=== PATIENT | female | born 1955 | race Caucasian/White ===

== ENCOUNTER → 2019-01-12 | Outpatient (CLI) | payer OTHER ==
[~2019-01-12] VITALS: Ht 175.3 cm; Wt 85.3 kg
[~2019-01-12] MED LIST: ALEVE220 MG PO; CATAPRES0.2 MG PO; FLEXERIL PO; HYDROCODON-ACE1 EAC5 PO; PROTONIX 20 MG20 M1 PO; PROZAC40 MG PO; WELLBUTRIN XL300 MG PO; XANAX1 MG PO
--- NOTE | ~2019-01-12 | HPC ---
[facility] [address] [place] [address] PAIN MANAGEMENT CONSULTATION Name: JORGECHERYNeftaliCLINTON CHULA Room #: REG KIMBERLY Noble#: [id number] Admission: 01/12/19 ������������������ Attend Phys: Chris Marquez MD Discharge: ������������������ Date of : 59 Report #: [id number] THIS REPORT FOR: //name// CC: Chris Barrios DATE OF SERVICE: 01/12/2019 The patient returns to Pain Clinic today complaining of bilateral pain radiating in the L5 distribution. She has a history of chronic low back pain and has had a previous surgery for resection of a synovial cyst at L4-L5 on the left. I saw her in 2014, she received a single transforaminal epidural injection with good results. Pain has now been returned and increasing in severity over the course of the last several months. She now describes her pain as 6/10. It is worse later in the day after she has been up on her feet and is also severe when she lays flat. She has another problem at this time, which is being evaluated at the [facility]. She has neurogenic cardiac syndrome. She has been passing out and this does not appear to be strictly orthostatic in nature. She reports that she will be going to the [facility] within the next month for further evaluation. MEDICATIONS: Pantoprazole, alprazolam, bupropion, clonidine, cyclobenzaprine, fluoxetine. ALLERGIES: TRIMETHOPRIM, LATEX. SOCIAL HISTORY: She is . Her is a patient of ours. She denies use of tobacco or alcohol. She is a retired nurse. She used to work in ____, stopped working a couple of years ago. REVIEW OF SYSTEMS: Positive for spells of sudden loss of consciousness without respiratory issue. She is no longer driving. She denies chest pain, denies shortness of breath. Occasional mild constipation. She has a history of nervousness and depression. Headaches and also occasional complaint. PHYSICAL EXAMINATION: GENERAL: Pleasant female. VITAL SIGNS: Blood pressure 136/86, heart rate 78, respirations 14, O2 sat 97 on room air. BMI is 27.8. NEUROLOGICAL: She is able to independently move from sitting to standing position, does not appear to be lightheaded. Her gait is stable. She has pain across her low back. She has bilateral positive straight leg raising that follows an L5-S1 distribution. Sensation is intact. There is no focal [facility] [address] [place] [address] PAIN MANAGEMENT CONSULTATION Name: CLINTON AGUILERA Room #: REG CLI [facility].#: [id number] Admission: 01/12/19 ������������������ Attend Phys: Chris Marquez MD Discharge: ������������������ Date of : 59 Report #: [id number] weakness. Deep tendon reflexes are diminished bilaterally at the knees and ankles. CHEST: Clear. CARDIAC: Rhythm is regular. ABDOMEN: Soft. SKIN: Small scar in midline of the low back from previous surgery overlying L4-L5 and L5-S1. Plain film x-ray of the lumbar spine shows grade 1 anterolisthesis of L4 on L5. There is some sclerosis of the upper lumbar spine as well as L4-L5 and L5-S1. There is a slight right lumbar curve without fracture identified. IMPRESSION: Bilateral lumbar radiculopathy. This follows an L5 distribution with complaints radiating down the lateral aspect of the leg past the knee into the calf and the top of the foot. RECOMMENDATIONS: Bilateral transforaminal epidural injections, L5-S1 under fluoroscopic guidance. PROCEDURE: She was taken to the fluoroscopic suite for treatment. She was placed prone, skin prepped with ChloraPrep. Skin anesthetized over the L5-S1 neural foramen, first on the left. Using triplanar fluoroscopic views, I advanced the needle into the neural foramen. A 1 mL of Omnipaque was injected and excellent spread of dye observed into the epidural space. It was then followed by 3 mL of 0.5% lidocaine mixed with 40 mg triamcinolone. She tolerated the procedure well. There were no paresthesias or discomfort during the injection. C-arm was moved to the right. Again, excellent position of the needle was achieved using triplanar fluoroscopic views. A 0.25 mL of Omnipaque again demonstrated an epidurogram along the right. It was followed then by 3 mL of 0.5% lidocaine mixed with 40 mg of triamcinolone on the right through the L5-S1 neural foramen. She tolerated the procedure well. There were no complications. She was seen in recovery room for about 30 minutes and discharged. She was able to ambulate without difficulty. Followup visit planned in about 6 weeks. ��������������������������������������������� ���������������������������������������� By: ��������������������������������������������� 1355 0028 Chris Marquez MD /nt
[2019-01-12 09:29] VITALS: BP 130/86
--- NOTE | 2019-01-12 09:58 | NUR ---
Pain Clinic Assessment: 1. History of Osteoarthritis: SPINE History of Rheumatoid Arthritis: NO 2. Height: 5 ft. 9 in. 175.3 cm. Weight: 188.0 lb. oz. 85.276 kg. Patient's BMI: 27.8 3. Vital Signs: BP: 130/86 Pulse: 78 Resp: 14 Temp: 02 Sat: 97 ECG Mon: 4. Pain Intensity: 6 5. Fall Risk: Dizziness: Y Needs help standing or walking: N Fallen in the last 3 months: N Fall risk comments: 6. Patient on Blood Thinner: None 7. History of Hypertension: N 8. Opioid Therapy greater than 6 weeks: N Opiate Contract Signed: 9. Risk Assessment Tool Provided: 10. Functional Assessment Tool: 11. Recreational Drug Use: Never Drug Type: Tobacco Use: Never Smoker Tobacco Type: Amount or Packs/day: How Many Years: Alcohol Use: Yes Frequency: Weekly Quant: 1-2 WINE A WEEK
== END | disposition home or self-care (01) ==
LOC: PAIN 06:41
DX: M54.16 Radiculopathy, lumbar region (principal); G89.29 Other chronic pain; Z91.040 Latex allergy status; Z88.8 Allergy status to other drugs, medicaments and biological substances; Z79.899 Other long term (current) drug therapy; Z88.2 Allergy status to sulfonamides

== ENCOUNTER → 2019-01-30 | Outpatient (CLI) | payer OTHER ==
[~2019-01-30] VITALS: Ht 175.3 cm; Wt 89.4 kg
--- NOTE | ~2019-01-30 | HPC ---
[facility] [address] [place] [address] PAIN MANAGEMENT CONSULTATION Name: CLINTON AGUILERA CHULA Room #: REG RIZWANAJoanna Noble#: [id number] Admission: 01/30/19 Attend Phys: Chris Marquez MD Discharge: Date of : 59 Report #: [id number] THIS REPORT FOR: //name// CC: Darrin Barrios DATE OF SERVICE: 01/30/2019 Followup visit for lumbar radiculopathy. The patient returns today reporting temporary improvement following a transforaminal epidural injection. She has had a previous surgery. We talked about repeating the injections today, but I have elected to proceed with a midline injection at L5-S1. She has neurogenic cardiac syndrome and has been passing out and planning on going to [facility] in the next week or two. She is hopeful that the pain relief from the injection will help her in her ride to the [facility] with her . PHYSICAL EXAMINATION: VITAL SIGNS: Blood pressure is 133/92, heart rate 95, respirations 16. She is able to move independently and ambulate without too much difficulty. She has tenderness across the scar from her back. Straight leg raising is positive bilaterally. It follows the L5-S1 distribution. IMPRESSION: Bilateral lumbar radiculopathy in an L5 distribution. PROCEDURE: The patient was taken to fluoroscopic suite, placed prone, skin prepped with ChloraPrep. Skin was anesthetized over the L5-S1 interspace. A 20-gauge Tuohy epidural needle advanced first attempt in the epidural space with loss of resistance technique. There was no blood or CSF aspirated. A 1 mL of Omnipaque was injected. Good spread of dye observed in the epidural space followed by 3 mL of 0.5% lidocaine with 80 mg of triamcinolone. She tolerated the procedure well and was observed for 45 minutes and discharged. Follow up as needed. By: 1815 0034 Chris Marquez MD /nt
[2019-01-30 10:32] VITALS: BP 133/92
--- NOTE | 2019-01-30 10:34 | NUR ---
Pain Clinic Assessment: 1. History of Osteoarthritis: SPINE History of Rheumatoid Arthritis: NO 2. Height: 5 ft. 9 in. 175.3 cm. Weight: 197.0 lb. oz. 89.359 kg. Patient's BMI: 29.1 3. Vital Signs: BP: 133/92 Pulse: 95 Resp: 16 Temp: 02 Sat: 95 ECG Mon: 4. Pain Intensity: 6 5. Fall Risk: Dizziness: Y Needs help standing or walking: N Fallen in the last 3 months: N Fall risk comments: OCCASIONAL DIZZINIESS-RESOLVES ON OWN 6. Patient on Blood Thinner: None 7. History of Hypertension: N 8. Opioid Therapy greater than 6 weeks: N Opiate Contract Signed: 9. Risk Assessment Tool Provided: 10. Functional Assessment Tool: 11. Recreational Drug Use: Never Drug Type: Tobacco Use: Never Smoker Tobacco Type: Amount or Packs/day: How Many Years: Alcohol Use: Yes Frequency: Quant:
== END | disposition home or self-care (01) ==
LOC: PAIN 06:56
DX: M54.16 Radiculopathy, lumbar region (principal); G89.29 Other chronic pain; Z91.040 Latex allergy status; Z88.2 Allergy status to sulfonamides; Z79.899 Other long term (current) drug therapy; Z98.890 Other specified postprocedural states

== ENCOUNTER → 2019-02-20 | Outpatient (CLI) | payer OTHER ==
[~2019-02-20] VITALS: Ht 175.3 cm; Wt 87.2 kg
[~2019-02-20] MED LIST changes: +HYDROCODON-ACE1 EAC7 PO
--- NOTE | ~2019-02-20 | HPC ---
[facility] [place] [address] [place] [address] PAIN MANAGEMENT CONSULTATION Name: CLINTON AGUILERA [place]ETH[place] Room #: REG KIMBERLY Cui.#: [id number] Admission: 02/20/19 ������������������ Attend Phys: Chris Marquez MD Discharge: ������������������ Date of : 59 Report #: [id number] THIS REPORT FOR: //name// CC: Darrin Barrios DATE OF SERVICE: 02/20/2019 Followup visit for chronic low back pain with radiculopathy. The patient returns to pain clinic today in followup. She is here today to discuss injection treatments. She has had previous epidural injections with some good relief, but the pain is returning. We are going to repeat the injection today hoping for additional benefit. This will be her third epidural injection in a period of 6 weeks. This will complete a full series of injections. She describes pain today as a 6/10, worse with lying flat. Pain is bilateral, but worse on the left than the right. Pain moves from one side to the other. PHYSICAL EXAMINATION: VITAL SIGNS: She is hypertensive today. Blood pressure 170/110 initially in the recovery room and stayed elevated. She did not take her antihypertensive as it was changed at the [facility] and we have placed a call to Dr. Darrin Masterson. MUSCULOSKELETAL: She moves from sitting to standing position, walks with mildly antalgic gait. There is no weakness. Straight leg raising is bilaterally positive, worse on the left, that follows an L5-S1 distribution. Sensation is intact. IMPRESSION: Chronic and persistent low back pain with bilateral radiculopathy, left worse than right. PROCEDURE: Repeat epidural injection under fluoroscopic guidance. DESCRIPTION OF PROCEDURE: She was taken to fluoroscopic suite, placed prone, skin prepped with ChloraPrep. Skin anesthetized over the right L4-L5 interspace. A 20-gauge Tuohy epidural needle was advanced in the epidural space with loss of resistance. There was no blood or CSF aspirated. A 1 mL of Omnipaque injected. Good spread of dye observed into the epidural space followed by 3 mL of 0.5% lidocaine mixed with 10 mg of dexamethasone. She tolerated the procedure well and was observed for 45 minutes and discharged. [facility] [address] [place] [address] PAIN MANAGEMENT CONSULTATION Name: CLINTON AGUILERA BETHLEHEM Room #: REG [facility].#: [id number] Admission: 02/20/19 ������������������ Attend Phys: Chris Marquez MD Discharge: ������������������ Date of : 59 Report #: [id number] Followup visit planned in the pain clinic in 1-2 months. May consider an MRI if there is no persistent improvement. ��������������������������������������������� ���������������������������������������� By: ��������������������������������������������� 1743 0231 Chris Marquez MD /nt
[2019-02-20 09:20] VITALS: BP 143/100
--- NOTE | 2019-02-20 09:22 | NUR ---
Pain Clinic Assessment: 1. History of Osteoarthritis: SPINE History of Rheumatoid Arthritis: NO 2. Height: 5 ft. 9 in. 175.3 cm. Weight: 192.2 lb. oz. 87.181 kg. Patient's BMI: 28.4 3. Vital Signs: BP: 143/100 Pulse: 114 Resp: 16 Temp: 02 Sat: 95 ECG Mon: 4. Pain Intensity: 6 5. Fall Risk: Dizziness: N Needs help standing or walking: N Fallen in the last 3 months: N Fall risk comments: OCCASIONAL DIZZINIESS-RESOLVES ON OWN 6. Patient on Blood Thinner: None 7. History of Hypertension: N 8. Opioid Therapy greater than 6 weeks: N Opiate Contract Signed: 9. Risk Assessment Tool Provided: 10. Functional Assessment Tool: 11. Recreational Drug Use: Never Drug Type: Tobacco Use: Never Smoker Tobacco Type: Amount or Packs/day: How Many Years: Alcohol Use: Yes Frequency: Weekly Quant: 1-2
== END | disposition home or self-care (01) ==
LOC: PAIN 06:41
DX: M54.16 Radiculopathy, lumbar region (principal); G89.29 Other chronic pain; Z98.890 Other specified postprocedural states; Z91.040 Latex allergy status; Z88.2 Allergy status to sulfonamides; Z88.8 Allergy status to other drugs, medicaments and biological substances; Z79.899 Other long term (current) drug therapy

== ENCOUNTER → 2019-04-13 | Outpatient (CLI) | payer OTHER ==
[~2019-04-13] VITALS: Ht 175.3 cm; Wt 90.0 kg
[2019-04-13 10:07] VITALS: BP 109/67
--- NOTE | 2019-04-13 10:25 | NUR ---
Pain Clinic Assessment: 1. History of Osteoarthritis: SPINE History of Rheumatoid Arthritis: NO 2. Height: 5 ft. 9 in. 175.3 cm. Weight: 198.4 lb. oz. 89.994 kg. Patient's BMI: 29.3 3. Vital Signs: BP: 109/67 Pulse: 76 Resp: 14 Temp: 02 Sat: 98 ECG Mon: 4. Pain Intensity: 4 5. Fall Risk: Dizziness: N Needs help standing or walking: N Fallen in the last 3 months: N Fall risk comments: OCCASIONAL DIZZINIESS-RESOLVES ON OWN 6. Patient on Blood Thinner: None 7. History of Hypertension: N 8. Opioid Therapy greater than 6 weeks: N Opiate Contract Signed: 04/13/19 9. Risk Assessment Tool Provided: 1 LOW 10. Functional Assessment Tool: 11. Recreational Drug Use: Never Drug Type: Tobacco Use: Never Smoker Tobacco Type: Amount or Packs/day: How Many Years: Alcohol Use: Yes Frequency: Special Occasions Quant:
--- NOTE | 2019-04-14 10:47 | HPC ---
[facility] [address] [address] PAIN MANAGEMENT CONSULTATION Name: CLINTON AGUILERA [place] Room #: REG KIMBERLY Aide#: [id number] Admission: 04/13/19 Attend Phys: Toya Childress Discharge: Date of : 59 Report #: [id number] THIS REPORT FOR: //name// CC: Toya Marquez MD DATE OF SERVICE: 04/13/2019 CHIEF COMPLAINT: Chronic low back pain with radiculopathy. HISTORY OF PRESENT ILLNESS: This is a very pleasant 63-year-old female, who returns to the pain clinic today for refill of medications that she has recently started taking by Dr. Chris Marquez in February. She has had a series of 3 epidural injections that are beneficial for a short period of time, then her low back pain and bilateral leg pain returns. She reports that the pain is worse during the middle of the night. It will wake her. She will have burning in her calf and a throbbing, aching pain, especially in her left leg. Heat, rest and occasional hydrocodone are beneficial. She does report a pain score of 4/10 today. She denies any problems with constipation since she does take this on a sparingly basis, not daily and denies any overmedicated feelings. She would like refill of this medication today. She reports that she was only given a 7-day supply from [facility] at her last prescription in February. ALLERGIES: SULFA, BACTRIM, AND LATEX. MEDICATIONS: Hydrocodone 5/325 p.r.n., Protonix 20 mg daily, Xanax 1 mg b.i.d. and Wellbutrin 300 mg daily. PQRS: 1. She does have osteoarthritis in her spine. Denies any rheumatoid arthritis. 2. Height is 5 feet 9 inches, weight is 198, and BMI is 29. 3. Vital signs 109/67, pulse is 76, respirations 14, oxygen sat is 98. 4. Pain score is 4/10. 5. Denies dizziness, does not need help walking or standing, has not fallen in the last 3 months. 6. The patient is not on any blood thinners or hypertension medicines. 7. Opiate therapy has been greater than 6 weeks. We will have her signed her opioid contract today. 8. Risk assessment tool is low. Functional assessment is 40/70. 9. Recreational drug use, she denies. She is not a smoker and occasionally drinks alcohol. According to the prescription monitoring system, the patient did fill her medications. After her last visit, she was given a 7-day supply of this [address] [address] PAIN MANAGEMENT CONSULTATION Name: CLINTON AGUILERA [place] Room #: REG CLJoanna Noble#: [id number] Admission: 04/13/19 Attend Phys: Toya Childress Discharge: Date of : 59 Report #: [id number] medication from [facility]. We did verify that they only gave her 21 pills, avoided the rest of the prescription. We will have checked a random drug screen on her in the future. PHYSICAL EXAMINATION: GENERAL: This is alert and orientated 63-year-old female who appears to her stated age, placing her current pain score at 4/10 today. HEENT: Normocephalic, atraumatic. Extraocular eye muscles are intact. Mucous membranes are moist. MUSCULOSKELETAL: She moves independently from sitting to standing position. Her gait is stable. She has pain across the lumbar spine that radiates into her bilateral legs following the L5-S1 distribution, worse on the left than the right. Sensation is intact. Straight leg raising bilaterally is positive again greater on the left than the right. IMPRESSION: 1. Chronic low back pain with bilateral radiculopathy. 2. Complex medical management under terms of written opioid agreement. 3. We reviewed the fact that opiate medications are being used to provide analgesia adequate to support activities of daily living, not attempting to achieve a specific pain score on the 0-10 Visual Analog Scale. The current opiate medications are providing sufficient analgesia to allow the patient to participate in activities of daily living. The patient is not exhibiting any aberrant behavior suggestive of drug diversion. The patient is not having any adverse reactions to medications. The patient is not suffering from daytime somnolence or mental acuity changes. The patient is managing opiate-induced constipation with appropriate [id number] agents and dietary considerations. The patient was counseled on concern for caution with operating a motor vehicle while using opiate medications. A physical exam was performed and the patient's functional status was evaluated. All patients with back pain were advised against the bed rest greater than 4 days and were advised to return to normal activities. Pain score assessment was noted and the treatment plan was reviewed with the patient. All current medications, both prescribed and OTC were reviewed and reconciled on the electronic medical record. Tobacco screening was accomplished and smoking cessation was advised when indicated. BMI was noted and diet/exercise modification was recommended for all patients following outside normal parameters. I reviewed with the patient today their responsibilities to safeguard prescription medications, reviewed their responsibility to utilize medications only as prescribed by the physician. They are to seek and receive pain medications only from 1 physician group ([facility]). They are to use 1 pharmacy and keep the clinic informed if they change pharmacies. Their responsibilities include making followup visits in a timely fashion and to avoid [facility] [address] [place] [address] PAIN MANAGEMENT CONSULTATION Name: CLINTON AGUILERA [place] Room #: REG KIMBERLY Cui.#: [id number] Admission: 04/13/19 Attend Phys: Toya Childress Discharge: Date of : 59 Report #: [id number] abrupt discontinuation of medication usage. Their responsibilities further include bringing their medications (bottles from the pharmacy with residual pills) to the visit for possible confirmation of pill counts and the patient understands it is their responsibility to submit to random drug screens to ensure both that the medications prescribed are present, and that no other controlled substances are present. All prescriptions provided today were generated electronically. PLAN: 1. We discussed treatment options with the patient today. I explained the prescription monitoring system and the need for opioid agreement, if we continue to write her medications. The patient verbalizes understanding. She was not aware that her prescriptions would not be filled. When they only gave her partial fill at [facility], they had given her a 7-day supply. 2. The patient given today 5/325 of hydrocodone #30, for today and 4 weeks. The patient does take this on a sparingly basis at bedtime when her pain is elevated. This places her at 5 morphine mEq a day by taking it once a day. 3. We did discuss possible gabapentin in the future if her leg continues to have a burning, numbness feeling that is not relieved with 1 occasional hydrocodone. I explained to the patient that this is something we could try in the future if again epidurals are not as beneficial. 4. I did talk to the patient about taking her Xanax and hydrocodone at the same time since there is a benzodiazepine and opioid interactions to be especially careful when taking these medicines. 5. The patient will follow up in 2 months or slightly longer if she is able to take these very sparingly. The patient is seen in collaboration with Dr. Chris Marquez today. <ELECTRONICALLY SIGNED> By: Toya Childress 04/14/19 [id number] Toya Childress /nt
== END ==
LOC: PAIN 07:03
DX: Z76.0 Encounter for issue of repeat prescription (principal); M54.16 Radiculopathy, lumbar region; G89.29 Other chronic pain; Z79.899 Other long term (current) drug therapy; Z79.891 Long term (current) use of opiate analgesic; Z88.2 Allergy status to sulfonamides; Z88.1 Allergy status to other antibiotic agents; Z91.040 Latex allergy status

== ENCOUNTER → 2019-07-17 | Outpatient (CLI) | payer OTHER ==
[~2019-07-17] VITALS: Ht 177.8 cm; Wt 89.5 kg
--- NOTE | ~2019-07-17 | HPC ---
[facility] [place] [address] [place] [address] PAIN MANAGEMENT CONSULTATION Name: CLINTON AGUILERA TONOPAH Room #: REG KIMBERLY OrourkeMerleMin.#: [id number] Admission: 07/17/19 Attend Phys: Chris Marquez MD Discharge: Date of : 59 Report #: [id number] THIS REPORT FOR: cc: Yuriy Negrete MD, Yuriy Marquez,Chris Cross MD ~ THIS REPORT FOR: //name// CC: Yuriy Marquez DATE OF SERVICE: 07/17/2019 Followup visit for lumbar spondylolisthesis and bilateral radiculopathy. The patient returns to pain clinic today for another epidural injection. She receives some benefit from these shots, which we perform periodically. In the year 2018, she received 2 injections. Bilateral transforaminal on 01/12 and then when she had a midline injection on 02/20. I also provide her with a small amount of hydrocodone. She takes it only when the pain is very severe. I give her 30 tablets at a time. Usually, she takes no more than 1 per day. PHYSICAL EXAMINATION: She is 5 feet 9 inches with a BMI of 29.3, blood pressure 109/67, heart rate 76, respirations 14. She moves independently from sitting to standing position. Gait is nonantalgic. She had good range of motion of the lumbar spine with tenderness across the lumbosacral segment. Straight leg raising bilaterally reproduces pain down the L4-L5 and L5-S1 distribution. Sensation is intact. No focal weakness. IMPRESSION: Lumbar radiculopathy, bilateral, secondary to L4-L5 spondylolisthesis. I am going to order an MRI. We do have a plain film x-ray, but no MRIs. This may be helpful in allowing us to see the degree of impingement and may affect our further treatments in the future. PROCEDURE: Lumbar epidural injection L4-L5 under fluoroscopic guidance. DESCRIPTION OF PROCEDURE: She was taken to fluoroscopic suite, placed prone, skin prepped with ChloraPrep. Skin anesthetized over L4-L5. A 20-gauge Tuohy epidural needle advanced in the epidural space on the first attempt with loss of resistance. There was no blood or CSF aspirated. A 1 mL of Omnipaque injected. Good spread of dye observed in the epidural space followed by 3 mL of 0.5% lidocaine mixed with 80 mg of triamcinolone. She tolerated the procedure well and was observed for 45 minutes [place] [address] PAIN MANAGEMENT CONSULTATION Name: CLINTON AGUILERA TONOPAH Room #: REG [facility] Basilia.#: [id number] Admission: 07/17/19 Attend Phys: Chris Marquez MD Discharge: Date of : 59 Report #: [id number] Follow up as needed. By: [id number] 0450 Chris Marquez MD /nt
[2019-07-17 14:25] VITALS: BP 102/69
--- NOTE | 2019-07-17 14:45 | NUR ---
Pain Clinic Assessment: 1. History of Osteoarthritis: SPINE History of Rheumatoid Arthritis: NO 2. Height: 5 ft. 10 in. 177.8 cm. Weight: 197.4 lb. oz. 89.540 kg. Patient's BMI: 28.3 3. Vital Signs: BP: 102/69 Pulse: 85 Resp: 14 Temp: 02 Sat: 99 ECG Mon: 4. Pain Intensity: 4 5. Fall Risk: Dizziness: N Needs help standing or walking: N Fallen in the last 3 months: Y Fall risk comments: OCCASIONAL DIZZINIESS-RESOLVES ON OWN 6. Patient on Blood Thinner: None 7. History of Hypertension: N 8. Opioid Therapy greater than 6 weeks: N Opiate Contract Signed: 04/13/19 9. Risk Assessment Tool Provided: 1 LOW 10. Functional Assessment Tool: 11. Recreational Drug Use: Never Drug Type: Tobacco Use: Never Smoker Tobacco Type: Amount or Packs/day: How Many Years: Alcohol Use: Yes Frequency: Quant:
== END | disposition home or self-care (01) ==
LOC: PAIN 06:59
DX: M54.16 Radiculopathy, lumbar region (principal); G89.29 Other chronic pain; M43.16 Spondylolisthesis, lumbar region; Z98.890 Other specified postprocedural states; Z88.2 Allergy status to sulfonamides; Z91.040 Latex allergy status; Z79.891 Long term (current) use of opiate analgesic; Z88.8 Allergy status to other drugs, medicaments and biological substances; Z79.899 Other long term (current) drug therapy

== ENCOUNTER → 2020-06-20 | Outpatient (CLI) | payer OTHER ==
[~2020-06-20] VITALS: Ht 177.8 cm; Wt 91.2 kg
[~2020-06-20] MED LIST changes: +CATAPRES0.2 M1 PO
[2020-06-20 11:09] VITALS: BP 122/72
--- NOTE | 2020-06-20 11:43 | NUR ---
Pain Clinic Assessment: 1. History of Osteoarthritis: SPINE History of Rheumatoid Arthritis: NO 2. Height: 5 ft. 10 in. 177.8 cm. Weight: 201.0 lb. oz. 91.173 kg. Patient's BMI: 28.8 3. Vital Signs: BP: 122/72 Pulse: 93 Resp: 16 Temp: 02 Sat: 97 ECG Mon: 4. Pain Intensity: 5 5. Fall Risk: Dizziness: Y Needs help standing or walking: N Fallen in the last 3 months: Y Fall risk comments: OCCASIONAL DIZZINIESS-RESOLVES ON OWN 6. Patient on Blood Thinner: None 7. History of Hypertension: N 8. Opioid Therapy greater than 6 weeks: N Opiate Contract Signed: 04/13/19 9. Risk Assessment Tool Provided: 1 LOW 10. Functional Assessment Tool: 11. Recreational Drug Use: Never Drug Type: Tobacco Use: Never Smoker Tobacco Type: Amount or Packs/day: How Many Years: Alcohol Use: Yes Frequency: Quant:
== END | disposition home or self-care (01) ==
LOC: PAIN 06:41
PROVIDERS: ATTEND Anesthesiology Pain Medicine
DX: M54.16 Radiculopathy, lumbar region (principal); M43.16 Spondylolisthesis, lumbar region; G89.29 Other chronic pain; Z98.890 Other specified postprocedural states; Z79.899 Other long term (current) drug therapy; Z91.040 Latex allergy status; Z88.2 Allergy status to sulfonamides; Z88.8 Allergy status to other drugs, medicaments and biological substances

== ENCOUNTER → 2020-07-08 | Outpatient (CLI) | payer OTHER ==
[~2020-07-08] VITALS: Ht 177.8 cm; Wt 89.0 kg
[~2020-07-08] MED LIST changes: +NEURONTIN300 MG PO
[2020-07-08 09:07] VITALS: BP 122/88
--- NOTE | 2020-07-08 09:21 | NUR ---
Pain Clinic Assessment: 1. History of Osteoarthritis: SPINE History of Rheumatoid Arthritis: NO 2. Height: 5 ft. 10 in. 177.8 cm. Weight: 196.2 lb. oz. 88.996 kg. Patient's BMI: 28.2 3. Vital Signs: BP: 122/88 Pulse: 97 Resp: 16 Temp: 02 Sat: 98 ECG Mon: 4. Pain Intensity: 8 5. Fall Risk: Dizziness: N Needs help standing or walking: N Fallen in the last 3 months: Y Fall risk comments: OCCASIONAL DIZZINIESS-RESOLVES ON OWN 6. Patient on Blood Thinner: None 7. History of Hypertension: N 8. Opioid Therapy greater than 6 weeks: N Opiate Contract Signed: 04/13/19 9. Risk Assessment Tool Provided: 1 LOW 10. Functional Assessment Tool: / 11. Recreational Drug Use: Never Drug Type: Tobacco Use: Never Smoker Tobacco Type: Amount or Packs/day: How Many Years: Alcohol Use: Yes Frequency: Monthly Quant:
== END ==
LOC: PAIN 06:46
PROVIDERS: ATTEND Anesthesiology Pain Medicine
DX: M54.16 Radiculopathy, lumbar region (principal); Z88.2 Allergy status to sulfonamides; Z88.8 Allergy status to other drugs, medicaments and biological substances; Z79.891 Long term (current) use of opiate analgesic

== ENCOUNTER → 2020-07-11 | Outpatient (CLI) | payer OTHER | LOC: MRI 10:29 | PROVIDERS: ATTEND Anesthesiology Pain Medicine | DX: M51.16 Intervertebral disc disorders with radiculopathy, lumbar region (principal); M47.26 Other spondylosis with radiculopathy, lumbar region; M48.061 Spinal stenosis, lumbar region without neurogenic claudication; M25.78 Osteophyte, vertebrae ==

== ENCOUNTER → 2020-07-22 | Outpatient (CLI) | payer OTHER ==
[~2020-07-22] VITALS: Ht 177.8 cm; Wt 88.9 kg
[~2020-07-22] MED LIST changes: +MOBIC7.5 MG PO
[2020-07-22 09:26] VITALS: BP 117/89
--- NOTE | 2020-07-22 09:40 | NUR ---
Pain Clinic Assessment: 1. History of Osteoarthritis: SPINE History of Rheumatoid Arthritis: NO 2. Height: 5 ft. 10 in. 177.8 cm. Weight: 196.0 lb. oz. 88.905 kg. Patient's BMI: 28.1 3. Vital Signs: BP: 117/89 Pulse: 91 Resp: 16 Temp: 02 Sat: 100 ECG Mon: 4. Pain Intensity: 6 5. Fall Risk: Dizziness: N Needs help standing or walking: N Fallen in the last 3 months: Y Fall risk comments: OCCASIONAL DIZZINIESS-RESOLVES ON OWN 6. Patient on Blood Thinner: None 7. History of Hypertension: N 8. Opioid Therapy greater than 6 weeks: N Opiate Contract Signed: 04/13/19 9. Risk Assessment Tool Provided: 1 LOW 10. Functional Assessment Tool: / 11. Recreational Drug Use: Never Drug Type: Tobacco Use: Never Smoker Tobacco Type: Amount or Packs/day: How Many Years: Alcohol Use: Yes Frequency: Monthly Quant: 1-2
== END ==
LOC: PAIN 07:05
PROVIDERS: ATTEND Anesthesiology Pain Medicine
DX: G89.29 Other chronic pain (principal); M47.26 Other spondylosis with radiculopathy, lumbar region; M53.3 Sacrococcygeal disorders, not elsewhere classified; Z68.26 Body mass index [BMI] 26.0-26.9, adult; Z88.8 Allergy status to other drugs, medicaments and biological substances; Z79.891 Long term (current) use of opiate analgesic; Z79.899 Other long term (current) drug therapy

== ENCOUNTER → 2020-08-22 | Outpatient (CLI) | payer OTHER ==
[~2020-08-22] VITALS: Ht 177.8 cm; Wt 91.4 kg
[2020-08-22 13:35] VITALS: BP 123/91
--- NOTE | 2020-08-22 14:06 | NUR ---
Pain Clinic Assessment: 1. History of Osteoarthritis: SPINE History of Rheumatoid Arthritis: NO 2. Height: 5 ft. 10 in. 177.8 cm. Weight: 201.4 lb. oz. 91.355 kg. Patient's BMI: 28.9 3. Vital Signs: BP: 123/91 Pulse: 85 Resp: 16 Temp: 02 Sat: 97 ECG Mon: 4. Pain Intensity: 8 5. Fall Risk: Dizziness: Y Needs help standing or walking: N Fallen in the last 3 months: N Fall risk comments: OCCASIONAL DIZZINIESS-RESOLVES ON OWN 6. Patient on Blood Thinner: None 7. History of Hypertension: N 8. Opioid Therapy greater than 6 weeks: Y Opiate Contract Signed: 04/13/19 9. Risk Assessment Tool Provided: 1 LOW 10. Functional Assessment Tool: 11. Recreational Drug Use: Never Drug Type: Tobacco Use: Never Smoker Tobacco Type: Amount or Packs/day: How Many Years: Alcohol Use: Yes Frequency: Monthly Quant: 2 TO 3
== END | disposition home or self-care (01) ==
LOC: PAIN 08-15 13:50
PROVIDERS: ATTEND Anesthesiology Pain Medicine
DX: M53.3 Sacrococcygeal disorders, not elsewhere classified (principal); M46.1 Sacroiliitis, not elsewhere classified; G89.29 Other chronic pain; Z98.890 Other specified postprocedural states; Z79.899 Other long term (current) drug therapy; Z88.2 Allergy status to sulfonamides; Z88.8 Allergy status to other drugs, medicaments and biological substances

== ENCOUNTER → 2020-11-25 | Outpatient (CLI) | payer OTHER ==
[~2020-11-25] VITALS: Ht 177.8 cm; Wt 91.0 kg
[2020-11-25 13:30] VITALS: BP 116/71
--- NOTE | 2020-11-25 13:46 | NUR ---
Pain Clinic Assessment: 1. History of Osteoarthritis: SPINE History of Rheumatoid Arthritis: NO 2. Height: 5 ft. 10 in. 177.8 cm. Weight: 200.6 lb. oz. 90.992 kg. Patient's BMI: 28.8 3. Vital Signs: BP: 116/71 Pulse: 84 Resp: 16 Temp: 02 Sat: 98 ECG Mon: 4. Pain Intensity: 7 5. Fall Risk: Dizziness: N Needs help standing or walking: N Fallen in the last 3 months: Y Fall risk comments: OCCASIONAL DIZZINIESS-RESOLVES ON OWN 6. Patient on Blood Thinner: None 7. History of Hypertension: N 8. Opioid Therapy greater than 6 weeks: Y Opiate Contract Signed: 04/13/19 9. Risk Assessment Tool Provided: 1 LOW 10. Functional Assessment Tool: / 11. Recreational Drug Use: Never Drug Type: Tobacco Use: Never Smoker Tobacco Type: Amount or Packs/day: How Many Years: Alcohol Use: Yes Frequency: Quant:
== END | disposition home or self-care (01) ==
LOC: PAIN 09-26 11:01
PROVIDERS: ATTEND Anesthesiology Pain Medicine
DX: M53.3 Sacrococcygeal disorders, not elsewhere classified (principal); M43.16 Spondylolisthesis, lumbar region; G89.29 Other chronic pain; Z98.890 Other specified postprocedural states; Z79.899 Other long term (current) drug therapy; Z88.2 Allergy status to sulfonamides; Z88.8 Allergy status to other drugs, medicaments and biological substances